=== PATIENT | female | born 1945 | race Caucasian/White ===

== ENCOUNTER 2018-04-18 14:38 | Emergency (ER) | payer OTHER ==
[~2018-04-18] VITALS: Ht 165.1 cm; Wt 73.9 kg
[~2018-04-18 14:38] MED LIST: ALBUTEROL2.5 MG/31 INH; ARTIFICIAL TEA1 EACH OPHTHALMIC; ASA5UEC PO; AZELASTINE137 MCG/0. NS; BENADRYL25 MG PO; BENZONATATE200 MG; BROVANA15 MCG/2 M; BUTALBITAL-APA1 EAC1; CITRACAL + BON1 EACH PO; CLARINEX5 MG PO; DUONEB 2.5-0.5 M3 ML INH; FETZIMA40 MG PO; FIBER625 MG PO; FISH OIL 1,001000 M2 PO; FLONASE 0.05%50 MCG NASAL; HEALTHYLAX17 GM; HYDROCHLOROTHIA25 M1 PO; IBUPROFEN 200200 M1 PO; KETOCONAZOLE60 GM TOP; MACROBID 100 M100 M1 PO; MICARDIS40 MG PO; MUCINEX1200 MG PO; NASONEX17 GM; NEILMED SINUS R1 KIT NASAL; NEXIUM 40 MG CA40 M1 PO; NEXIUM40 MG PO; OMEPRAZOLE 20 M20 M1 PO; OPCON-A EYE DRO15 M1 OPHTHALMIC; PHENERGAN 25 MG25 M1; PHENERGAN 25 MG25 M1 PO; PREDNISONE 20 M20 M1; PROAIR HFA8.5 GM INH; PROBIOTIC1 EAC1 PO; PROPRANOLOL 4040 M1; PULMICORT0.25 MG/2; SINGULAIR 10 MG10 M1; SOMA250 MG; SORINE 80 MG TA80 M1; SYMBICORT80 MCG/4.1 INH; TORADOL 10 MG T10 MG PO; UNICOMPLEX M TA1 TA1 PO; VITAMIN D1000 UNI1 PO; VYTORIN 10-401 EACH PO; ZANTAC 150MG T150 MG PO
[2018-04-18 15:01] LABS: ABSOLUTE BASOPHILS 0.1 thou/uL (0.0-0.2); ABSOLUTE EOSINOPHILS 0.5 thou/uL (0.0-0.7); ABSOLUTE LYMPHOCYTES 2.9 thou/uL (0.8-5.3); ABSOLUTE MONOCYTES 0.9 thou/uL (0.0-1.2); ABSOLUTE NEUTROPHILS 4.1 thou/uL (1.6-8.1); BASOPHILS 0.7 %; EOSINOPHILS 5.4 %; HEMATOCRIT 36.6 % (37.0-47.0); HEMOGLOBIN 12.7 gm/dL (12.0-15.0); LYMPHOCYTES 34.5 %; MCH 30.2 pg (26.0-34.0); MCHC 34.7 g/dL (28.0-37.0); MCV 87.1 fL (80.0-100.0); MONOCYTES 10.6 %; MPV 7.1 fl. (7.2-11.1); NUCLEATED RBCS 0 /100WBC; PLATELET COUNT* 321 thou/uL (150-400); POLYS 48.8 %; RDW-CV 13.3 % (10.5-14.5); WBC 8.4 thou/uL (4.0-11.0)
[2018-04-18 15:09] LABS: ANION GAP 7 mmol/L (7-16); BUN 21 mg/dL (7-18); CALCIUM 9.3 mg/dL (8.5-10.1); CHLORIDE 101 mmol/L (98-107); CO2 28 mmol/L (21-32); CREATININE 0.9 mg/dL (0.6-1.3); GLUCOSE 105 mg/dL (70-99); POTASSIUM 3.6 mmol/L (3.5-5.1); SODIUM 136 mmol/L (136-145)
[2018-04-18] MEDS ORDERED: TESSALON PERLE100 MG PO (15:09)
[2018-04-18] MEDS ORDERED: BUTALB-APAP-CA1 EACH PO (15:09)
[2018-04-18] MEDS ORDERED: CARISOPRODOL 3350 MG PO (15:10)
[2018-04-18] MEDS ORDERED: SYMBICORT80 MCG/4.1 INH (15:10)
[2018-04-18] MEDS ORDERED: SINGULAIR 10 MG10 M1 PO (15:10)
[2018-04-18] MEDS ORDERED: CYMBALTA60 MG PO (15:10)
[2018-04-18 15:16] LABS: ALBUMIN 4.2 g/dL (3.4-5.0); ALKALINE PHOSPHATASE 97 U/L (46-116); SGOT 19 U/L (15-37); SGPT 38 U/L (30-65); TOTAL BILIRUBIN 0.3 mg/dL (<0.1-1.0); TOTAL PROTEIN 7.4 g/dL (6.4-8.2); TROPONIN-I LEVEL <0.06 ng/mL (<0.06)
[2018-04-18 16:16] LABS: URINE BILIRUBIN NEGATIVE (Negative); URINE BLOOD NEGATIVE (Negative); URINE CLARITY CLEAR; URINE COLOR YELLOW; URINE GLUCOSE-RANDOM NEGATIVE (Negative); URINE KETONES NEGATIVE (Negative); URINE LEUKOCYTES-REFLEX TRACE (Negative); URINE NITRITE-REFLEX NEGATIVE (Negative); URINE PROTEIN NEGATIVE (Negative); URINE SPECIFIC GRAVITY 1.015 (1.005-1.030); URINE UROBILINOGEN 0.2 E.U./dl (0.2-1.0)
[2018-04-18 16:31] LABS: BACTERIA-REFLEX 1-9 Few /HPF (None Seen); CASTS None Seen /LPF (None Seen); CRYSTALS None Seen /LPF (None Seen); SQUAMOUS NONE SEEN /LPF (0-3); URINE RBC 0-2 Rare /HPF (0-2); URINE WBC-REFLEX 0-5 Rare /HPF (0-5)
[2018-04-18] MEDS ORDERED: PREDNISONE 20 M20 M1 PO (16:58)
[2018-04-18] MEDS ORDERED: CEFUROXIME250 MG PO (16:59)
[2018-04-18 17:09] VITALS: BP 143/60
--- NOTE | 2018-04-20 15:45 | EKG ---
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: You ROWLEY : 1945 Requested By: Carissa Reed Order Number: [id number] MD: Shaun Linn Measurements Intervals [place] Rate: 77 P: 72 [place]: 161 QRS: -28 QRSD: 98 T: 2 QT: 407 QTc: 461 Interpretive Statements Sinus rhythm Inferior infarct, old Compared to ECG 03/24/2007 05:11:54 Myocardial infarct finding now present Sinus bradycardia no longer present Sinus arrhythmia no longer present Electronically Signed On 04-20-2018 15:45:24 CDT by Shaun Linn [email or web address] <ELECTRONICALLY SIGNED> By: Shaun Linn MD, [facility] 04/20/18 1545 1443 1443 Shaun Linn MD, [facility] /EPI
== END 2018-04-18 17:10 | disposition home or self-care (01) ==
LOC: M.ERS 14:38
PROVIDERS: Nurse Practitioner Family
DX: J45.909 Unspecified asthma, uncomplicated (principal); Z88.5 Allergy status to narcotic agent; Z88.8 Allergy status to other drugs, medicaments and biological substances; Z88.1 Allergy status to other antibiotic agents; Z90.710 Acquired absence of both cervix and uterus; Z90.49 Acquired absence of other specified parts of digestive tract

== ENCOUNTER 2018-04-26 07:34 | Inpatient (IN) | payer OTHER ==
[~2018-04-26] VITALS: Ht 162.6 cm; Wt 71.2 kg
[~2018-04-26 07:34] MED LIST changes: +BUTALB-APAP-CA1 EACH PO; +CARISOPRODOL 3350 MG PO; +CEFUROXIME250 MG PO; +CYMBALTA60 MG PO; +PREDNISONE 20 M20 M1 PO; +SINGULAIR 10 MG10 M1 PO; +TESSALON PERLE100 MG PO
[2018-04-26 07:35] VITALS: BP 129/51
[2018-04-26 07:54] LABS: ABSOLUTE EOSINOPHILS 0.5 thou/uL (0.0-0.7); ABSOLUTE LYMPHOCYTES 2.1 thou/uL (0.8-5.3); ABSOLUTE MONOCYTES 0.9 thou/uL (0.0-1.2); ABSOLUTE NEUTROPHILS 6.4 thou/uL (1.6-8.1); BASOPHILS 0.5 %; EOSINOPHILS 5.5 %; HEMATOCRIT 35.6 % (37.0-47.0); HEMOGLOBIN 12.1 gm/dL (12.0-15.0); LYMPHOCYTES 21.2 %; MCH 29.7 pg (26.0-34.0); MCV 87.6 fL (80.0-100.0); MPV 6.6 fl. (7.2-11.1); NUCLEATED RBCS 0 /100WBC; PLATELET COUNT* 337 thou/uL (150-400); POLYS 63.8 %; RBC 4.06 mil/uL (4.20-5.00); RDW-CV 13.7 % (10.5-14.5)
[2018-04-26 08:03] LABS: APTT 24.5 Seconds (25.0-31.3)
[2018-04-26 08:04] LABS: ANION GAP 8 mmol/L (7-16); BUN 21 mg/dL (7-18); CALCIUM 8.6 mg/dL (8.5-10.1); CHLORIDE 101 mmol/L (98-107); CO2 27 mmol/L (21-32); CREATININE 0.8 mg/dL (0.6-1.3); GLUCOSE 107 mg/dL (70-99); POTASSIUM 3.6 mmol/L (3.5-5.1); SODIUM 136 mmol/L (136-145)
[2018-04-26 08:11] LABS: ALBUMIN 3.5 g/dL (3.4-5.0); ALKALINE PHOSPHATASE 80 U/L (46-116); SGOT 14 U/L (15-37); SGPT 40 U/L (30-65); TOTAL BILIRUBIN 0.3 mg/dL (<0.1-1.0); TOTAL PROTEIN 6.5 g/dL (6.4-8.2); TROPONIN-I LEVEL <0.06 ng/mL (<0.06)
[2018-04-26 09:39] LABS: URINE BILIRUBIN NEGATIVE (Negative); URINE BLOOD NEGATIVE (Negative); URINE CLARITY CLEAR; URINE COLOR YELLOW; URINE GLUCOSE-RANDOM NEGATIVE (Negative); URINE KETONES NEGATIVE (Negative); URINE LEUKOCYTES-REFLEX 1+ (Negative); URINE NITRITE-REFLEX NEGATIVE (Negative); URINE PROTEIN NEGATIVE (Negative); URINE UROBILINOGEN 0.2 E.U./dl (0.2-1.0)
[2018-04-26 09:50] VITALS: BP 135/66
[2018-04-26 09:51] LABS: BACTERIA-REFLEX 1-9 Few /HPF (None Seen); CASTS None Seen /LPF (None Seen); CRYSTALS None Seen /LPF (None Seen); MUCUS 0-3 Light strn/LPF (None Seen); SQUAMOUS 0-3 Few /LPF (0-3); URINE RBC 3-10 Few /HPF (0-2); URINE WBC-REFLEX 0-5 Rare /HPF (0-5)
--- NOTE | 2018-04-26 10:15 | NUR ---
PATIENT ARRIVED TO UNIT AT 1000. ALERT AND ORIENTED X 4. VITAL SIGNS STABLE ON 2L O2 NASAL CANULA. AFEBRILE. PERRLA. IV PATENT WITH FLUIDS INFUSING. ORIENTED PATIENT TO ROOM. CALL LIGHT WITHIN REACH. NURSING WILL CONTINUE TO MONITOR.
[2018-04-26 11:22] VITALS: BP 135/66
--- NOTE | 2018-04-26 11:34 | EKG ---
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: [place] : 1945 Requested By: Jonas Hanna Order Number: [id number] MD: Nabor Patel Measurements Intervals [place] Rate: 70 P: 42 NE: 155 QRS: -32 QRSD: 94 T: -3 QT: 433 QTc: 468 Interpretive Statements Sinus rhythm Atrial premature complex consider old inferior infarction Left axis deviation Compared to ECG 04/18/2018 14:43:24 Atrial premature complex(es) now present Electronically Signed On 04-26-2018 11:34:18 CDT by Nabor Patel [email or web address] <ELECTRONICALLY SIGNED> By: Nabor Patel MD, [facility] 04/26/18 1134 0751 0751 Nabor Patel MD, [facility] /EPI
[2018-04-26 12:25] VITALS: BP 142/66
--- NOTE | 2018-04-26 15:14 | NUR ---
PATIENT ARRIVED BACK TO UNIT FROM PACU AT 1510. VITAL SIGNS STABLE ON 2L O2 NASAL CANULA WITH END TIDAL IN PLACE. ENCOURAGED PATIENT TO COUGH AND DEEP BREATHE 10 TIMES EVERY HOUR. DRESSING TO LEFT HIP CLEAN, DRY, AND INTACT. HONG PATENT AND DRAINING. SCD'S IN PLACE BILATERALLY. ITALIA HOSE IN PLACE BILATERALLY. CALL LIGHT WITHIN REACH. NURSING WILL CONTINUE TO MONITOR.
[2018-04-26 16:10] VITALS: BP 114/50
--- NOTE | 2018-04-26 18:25 | NUR ---
PATIENT ALERT AND ORIENTED X 4. VITAL SIGNS STABLE ON 2L O2 NASAL CANULA. CAPNO IN PLACE. AFEBRILE. PERRLA. IV PATENT WITH FLUIDS INFUSING. HONG PATENT AND DRAINING. PAIN BEING MANAGED WITH IV PAIN MEDICATION. DENIES NAUSEA. DRESSING TO LEFT HIP CLEAN, DRY, AND INTACT. SCD'S AND ITALIA HOSE IN PLACE BILATERALLY. FALL PRECAUTIONS IN PLACE AND BED ALARM ON. HOURLY ROUNDS MAINTAINED THROUGHOUT THE SHIFT. CALL LIGHT WITHIN REACH. NURSING WILL CONTINUE TO MONITOR.
[2018-04-27 00:51] VITALS: BP 102/44
[2018-04-27 04:35] LABS: HEMATOCRIT 30.3 % (37.0-47.0); HEMOGLOBIN 10.3 gm/dL (12.0-15.0)
[2018-04-27 04:42] VITALS: BP 106/49
[2018-04-27 08:10] VITALS: BP 133/61
--- NOTE | 2018-04-27 08:20 | NUR ---
PATIENT HAS SLEPT OFF AND ON DURING THE NIGHT BUT HAS BEEN RESTLESS AT TIMES. PAIN MEDICATIONS GIVEN TO HELP WITH C/O PAIN AND CHARTED. VSS ON 2L 02 VIA NASAL CANNULA AND CAPNO. HONG TO DEPENDENT DRAINAGE WITH YELLOW URINE OUTPUT. DRESSING TO LEFT HIP IS C/D/I, SCD'S IN PLACE AND ICE PACK ON SURGICAL SITE. IV IN LEFT AC-SL. NO C/O NAUSEA. PATIENT REPOSITIONED BUT PATIENT DID NOT WANT TO BE MOVED MOST OF THE TIME D/T PAIN IN LEFT LEG. PATIENT INSTRUCTED TO USE CALL LIGHT WHEN NEEDING ASSISTANCE. HOURLY ROUNDS MADE. WILL CONTINUE WITH PLAN OF CARE AND NURSING TO MONITOR.
[2018-04-27 16:04] VITALS: BP 129/51
--- NOTE | 2018-04-27 18:13 | NUR ---
PATIENT RESTING IN BED. AT BEDSIDE. PATIENT HAS HAD COMPLAINT S OF LEFT HIP PAIN AND MIGRAINE THROUGHOUT DAY. MIGRAINE HAS IMPROVED THROUGHOUT DAY FIORECET. LEFT HIP PAIN HAS ALSO IMPROVED THROUGHOUT DAY WITH ADEQUATE RELIEF PROVIDED BY MORPHINE AND FENTANYL. PATIENT WORKED WITH THERAPY THIS AM. PATIENT REFUSED HONG OUT THIS AM. PATIENT HAS FAIR APPETITE. PATIENT DENIES ANY NEEDS AT THIS TIME. CALL LIGHT WITHIN REACH. WILL CONTINUE TO MONITOR.
[2018-04-27 20:50] VITALS: BP 157/59
--- NOTE | 2018-04-27 22:23 | OP ---
[facility] [address] [place] [address] OPERATIVE REPORT Name: EMILIEKATHYTRACY ARSHADEN Room: [address] IN M.R.#: [id number] Admission: 04/26/18 Attend Phys: Claudia Alvarado Discharge: Date of : 47 Report #: [id number] THIS REPORT FOR: //name// CC: Renan Altamirano DICTATED BY: Tong Mitchell DO DATE OF SERVICE: 04/26/2018 PREOPERATIVE DIAGNOSIS: Left hip nondisplaced femoral neck fracture. POSTOPERATIVE DIAGNOSIS: Left hip nondisplaced femoral neck fracture. PROCEDURE PERFORMED: Left hip in situ screw fixation. SURGEON: Nabor Lezama DO. POSTPARTUM NURSE: Tong Mitchell DO SECOND POSTPARTUM NURSE: Nicholas Harris DO. ESTIMATED BLOOD LOSS: 20 mL. ANESTHESIA: General. ANTIBIOTIC: Two grams Ancef IV preoperatively. SPECIMENS: None. COMPLICATIONS: None. CONDITION: The patient is stable to PACU. INDICATIONS FOR PROCEDURE: The patient is a pleasant 72-year-old female who presented to [facility] Emergency Department after a fall onto her left hip this morning. Upon presentation, she was found to have a nondisplaced femoral neck fracture. Surgical intervention was recommended for the patient. The risks, benefits, alternatives and complications were discussed and she wished to proceed. DESCRIPTION OF PROCEDURE: The patient was seen and examined in the preoperative holding area. The correct operative extremity was marked by the operating surgeon. Written consent was obtained for the procedure. The patient was then transferred to the operating room, given the benefit of general anesthesia. She was transferred to the [facility]. The left [place] [address] OPERATIVE REPORT Name: EMILIEKATHYTRACY MARADIAGA Room: [address] IN .R.#: [id number] Admission: 04/26/18 Attend Phys: Claudia Alvarado Discharge: Date of : 47 Report #: [id number] boot and traction leg durbin and the right lower extremity was placed in the leg durbin. The left lower extremity was prepped and draped in the usual sterile fashion. Timeout was performed to verify the correct patient, procedure, and operative extremity and all were in agreement. Next, a standard lateral incision was made and carried down to the level of bone. Using a fluoroscopy, the inferior guide pin was inserted along the inferior aspect of the femoral neck on the AP radiograph and centered in the femoral neck on the lateral radiograph. Next, the offset guide was used to insert the superior guidewires, 1 anterior and 1 posterior in the neck using both AP and lateral radiographs for positioning. Next, the lateral cortex was drilled. The guidewires were then measured and each were measured to be 90 mm screw. The screws were then inserted over the guidewires and verified to be in correct position in both the femoral neck and femoral head on AP and lateral radiographs. The guidewires were then removed and final radiographs were taken. Final radiographs confirmed appropriate position of the 3 partially threaded screws. The incision was then thoroughly irrigated and the IT band was closed with 0 Vicryl, followed by 2-0 Vicryl subcutaneously and kassandra on the skin. Sterile dressing of Mepilex, 4 x 4s, ABD and tape were applied to the left hip. The patient was then awakened from anesthesia and transferred to the PACU in stable condition. POSTOPERATIVE COURSE: The patient will be admitted to the medical floor. Proper analgesia as well as DVT prophylaxis will be administered postoperatively. The patient will be made toe-touch weightbearing to the left lower extremity. Physical Therapy and Occupational Therapy will see and evaluate the patient for postoperative needs. <ELECTRONICALLY SIGNED> By: Nabor Lezama DO 04/27/18 2223 1356 1515Daviclaudia Lezama DO /nt
[2018-04-28] VITALS: BP 111/60
[2018-04-28 03:30] VITALS: BP 105/43
[2018-04-28 04:04] LABS: HEMATOCRIT 30.7 % (37.0-47.0); HEMOGLOBIN 10.4 gm/dL (12.0-15.0)
--- NOTE | 2018-04-28 07:08 | NUR ---
ALERT AND ORIENTED X4. REPOSITIONED AT LEAST EVERY 2 HOURS. WILL D/C HONG CATHETER THIS AM. URINE CLEAR YELLOW IN COLOR. HAS DRY DRESSING OVER LEFT HIP INCISION. USING ALTERNATING IV PAIN MEDICATIONS TO HELP WITH LEFT HIP PAIN AND HEADACHES. DR NOTIFIED OF ELEVATED TEMPATURE THIS AM. CALL LIGHT WITHIN REACH. WEIGHTBEARING STATUS TO LEFT LOWER EXTEMITY IS TOE TOUCH WEIGHTBEARING.
[2018-04-28 09:50] VITALS: BP 118/53
--- NOTE | 2018-04-28 12:23 | NUR ---
SPOKE WITH PT.AND . SHE WAS MOANING,NOT FEELING WELL. ANSWERED ALL THE QUESTIONS. HE SAID THEY LIVE IN A HOUSE. IT HAS 12 STEPS TO ENTER. HE SAID HE COULD DRIVE IN THE [place] AND GET HER CLOSER AND SHE WOULD ONLY HAVE 3-4 STEPS. SHE DOES NOT USE DME. NO HX OF HH. HE SAID SHE WAS INDEPENDENT AT [facility]. THEY SHARE CHORES. THEY BOTH DRIVE. HE USUALLY DOES THE DRIVING. DISCUSSED DISCHARGE PLANNING. GAVE HIM A LIST OF SNFS THAT CONTRACT WITH HER INSURANCE.
[2018-04-28 16:00] VITALS: BP 116/48
[2018-04-28 20:00] VITALS: BP 117/64
--- NOTE | 2018-04-28 20:46 | NUR ---
ASSUMED CARES OF PT AT 0700. PT IN BED, BED IN LOW LOCKED POSITION, CALL BUTTON AND PERSONAL ITEMS IN PT REACH. PT USES CALL BUTTON APPROPRIATELY. PT A&O X4, HRRR PER AUSCULTATION, LCTAB, VSS ON 2L O2 NC, AFEBRILE, PERRLA, SKIN INTACT LEFT HIP SURGICAL DRESSING C/D/I. PT UP TOE TOUCH WITH WALKER AND GAIT BELT TO BSC. LEFT AC IV PATENT TO FLUSH AND IVP MEDS. BILATERAL CALF SCD'S IN PLACE AND ACTIVE WHILE PT IN BED. ICE PACK ON HIP PER PT REQUEST. PO DAY 2, PT STILL HAS DIFFICULTY CONTROLLING PAIN AND ANXIETY. PT EXPERIENCED N/V THIS SHIFT, SMALL EMISIS IN [place]. NON-PRODUCTIVE COUGH. PT C/O HEADACHE MOST OF SHIFT, FIORICET GIVEN , PARTIALLY EFFECTIVE PER PT STATEMENT. SPOUSE AT BEDSIDE MOST OF SHIFT, ATTEMPTED TO HELP PT OOB TO BSC WITHOUT CALLING FOR STAFF. PT AND SPOUSE REEDUCATED ON IMPORTANCE OF CALLING FOR STAFF HELP TO BSC. SPOUSE ATTEMPTED TO TURN OFF BED ALARM AND WAS FOUND BY NURSING STAFF. HOURLY ROUNDING COMPLETED. PT PROGRESSING TOWARDS GOAL. FLAT, ANXIOUS, FUSSY DISPOSITION THIS SHIFT. REPORT TO EXPORT PACKER FOR CONTINUED CARES.
[2018-04-28 23:49] VITALS: BP 121/64
[2018-04-29 04:01] VITALS: BP 117/56
--- NOTE | 2018-04-29 04:34 | NUR ---
PATIENT ORIENTED X4 ON HOURLY ROUNDS. MEDICATED FOR PAIN WITH GOOD EFFECT REPORTED. DRESSING TO LEFT HIP IS DRY AND INTACT. VITALS STABLE ON 2L O2 . DENIES NAUSEA. TOLERATING DIET. UP TO BSC WITH ASSIST X1, MAINTAING TTWB. WILL CONINTUE TO MONITOR.
[2018-04-29 08:00] VITALS: BP 119/64
--- NOTE | 2018-04-29 11:26 | NUR ---
PT.CHOSE [facility] FOR SKILLED FACILITY. NOTIFIED [facility] AND FAXED HER REFERRAL. SHE WILL NEED TO OBTAIN AUTHORIZATION FROM INSURANCE.
[2018-04-29 15:56] VITALS: BP 116/53
--- NOTE | 2018-04-29 16:20 | NUR ---
PT PARTICIPATED IN ALL THERAPIES. PT UP TO BSC WITH ASSIST FREQUENTLY. PT REPORTS LOPEZ. MEDS GIVEN ORDERED. TOLERATING PO WELL. AT BS AND UPDATED ON PLAN OF CARE
[2018-04-30] VITALS: BP 118/67
--- NOTE | 2018-04-30 04:41 | NUR ---
PATIENT ORIENTED X4. UP WITH ASSIST X1. MEDICATED FOR PAIN WITH PARTIAL EFFECT REPORTED. ZOFRAN GIVEN X1. DRESSING TO LEFT HIP CLEAN, DRY AND INTACT. VITALS STABLE ON ROOM AIR. WILL CONTINUE TO MONITOR.
[2018-04-30 10:00] VITALS: BP 127/62
[2018-04-30] MEDS ORDERED: CARISOPRODOL 3350 MG PO (10:35)
[2018-04-30] MEDS ORDERED: BUTALB-APAP-CA1 EACH PO (10:35)
[2018-04-30] MEDS ORDERED: TRAMADOL 50 MG50 MG PO (10:35)
[2018-04-30] MEDS ORDERED: ATIVAN1 MG PO (10:35)
--- NOTE | 2018-04-30 12:04 | NUR ---
RECEIVED MESSAGE FROM [facility]. THEY RECEIVED AUTHORIZATION FOR PT.FROM INSURANCE FOR A SKILLED BED. THEY WILL PICK HER UP AT 2PM. NOTIFIED PT.AND . CHART COPIED TO GO WITH PT. NURSING TO CALL REPORT. FAXED DISCHARGE ORDERS TO [facility].
[2018-04-30] MEDS ORDERED: ONDANSETRON HCL4 M2 PO (12:39)
[2018-04-30 12:44] VITALS: BP 127/62
--- NOTE | 2018-04-30 14:30 | NUR ---
PATIENT SITTING UP IN CHAIR ALL SHIFT. FIORCET GIVEN X 1 FOR HEADACHE. TRAMADOL AND ZOFRAN PRN GIVEN X 1 THIS SHIFT PRIOR TO DC. IV DC'D PER PROTOCOL. GOOD APPETITE. DISCHARGE PACKET SENT WITH WHEELCHAIR VAN TO [facility]. MAKING SECOND ATTEMPT TO GIVE REPORT ON PATIENT AT THIS TIME, HAVE BEEN UNABLE TO SPEAK WITH ANYONE.
== END 2018-04-30 13:30 | DRG 481 ==
LOC: M.ERS 07:34 → M.ORTHSURG 08:33 → M.TBA-ER 08:33 → M.ORTHSURG 10:00
PROVIDERS: Family Medicine; Orthopaedic Surgery; ADMIT Internal Medicine
PROC: 0QS704Z Reposition Left Upper Femur with Internal Fixation Device, Open Approach (ICD-10-PCS; principal; 2018-04-26)
DX: S72.002A Fracture of unspecified part of neck of left femur, initial encounter for closed fracture (principal); R71.0 Precipitous drop in hematocrit; J45.909 Unspecified asthma, uncomplicated; G43.909 Migraine, unspecified, not intractable, without status migrainosus; E78.5 Hyperlipidemia, unspecified; M19.90 Unspecified osteoarthritis, unspecified site; I10 Essential (primary) hypertension; R09.02 Hypoxemia; W01.0XXA Fall on same level from slipping, tripping and stumbling without subsequent striking against object, initial encounter; Z90.710 Acquired absence of both cervix and uterus; Z98.890 Other specified postprocedural states; Z90.49 Acquired absence of other specified parts of digestive tract; Z79.2 Long term (current) use of antibiotics; Z79.82 Long term (current) use of aspirin; Z79.899 Other long term (current) drug therapy; Z88.6 Allergy status to analgesic agent; Z88.2 Allergy status to sulfonamides; Z88.8 Allergy status to other drugs, medicaments and biological substances; Y93.89 Activity, other specified; Y92.89 Other specified places as the place of occurrence of the external cause; Y99.8 Other external cause status

== ENCOUNTER → 2018-12-26 | Outpatient (CLI) | payer OTHER ==
[~2018-12-26] MED LIST changes: +ATIVAN1 MG PO; +ONDANSETRON HCL4 M2 PO; +TRAMADOL 50 MG50 MG PO
== END ==
LOC: M.RAD 15:04
DX: J15.8 Pneumonia due to other specified bacteria (principal)

== ENCOUNTER 2020-01-05 15:26 | Inpatient (IN) | payer OTHER ==
[~2020-01-05] VITALS: Ht 162.6 cm; Wt 72.1 kg
[2020-01-05 15:32] VITALS: BP 122/78
[2020-01-05 16:21] LABS: HEMATOCRIT 41.3 % (37.0-47.0); HEMOGLOBIN 13.9 gm/dL (12.0-15.0); MCHC 33.6 g/dL (28.0-37.0); MCV 89.2 fL (80.0-100.0); MPV 7.1 fl. (7.2-11.1); NUCLEATED RBCS 0 /100WBC; PLATELET COUNT* 306 thou/uL (150-400); RBC 4.63 mil/uL (4.20-5.00); RDW-CV 13.2 % (10.5-14.5); WBC 13.8 thou/uL (4.0-11.0)
[2020-01-05 16:32] LABS: CALCIUM 8.4 mg/dL (8.5-10.1); CREATININE 0.8 mg/dL (0.6-1.3); POTASSIUM 3.8 mmol/L (3.5-5.1)
[2020-01-05 16:37] LABS: ALBUMIN 3.6 g/dL (3.4-5.0); TOTAL BILIRUBIN 0.5 mg/dL (<0.1-1.0); TOTAL PROTEIN 7.1 g/dL (6.4-8.2)
[2020-01-05 16:43] LABS: INFLUENZA A ANTIGEN Negative (Negative); INFLUENZA B ANTIGEN Negative (Negative)
[2020-01-05 17:22] LABS: ABSOLUTE EOSINOPHILS 0.4 thou/uL (0.0-0.7); ABSOLUTE LYMPHOCYTES 0.8 thou/uL (0.8-5.3); ABSOLUTE MONOCYTES 0.6 thou/uL (0.0-1.2)
[2020-01-05 17:23] LABS: PLATELET ESTIMATE ADEQUATE
[2020-01-05 19:12] LABS: URINE BILIRUBIN NEGATIVE (Negative); URINE BLOOD NEGATIVE (Negative); URINE CLARITY CLEAR; URINE COLOR YELLOW; URINE GLUCOSE-RANDOM NEGATIVE (Negative); URINE KETONES NEGATIVE (Negative); URINE LEUKOCYTES-REFLEX NEGATIVE (Negative); URINE NITRITE-REFLEX NEGATIVE (Negative); URINE PROTEIN NEGATIVE (Negative); URINE UROBILINOGEN 0.2 E.U./dl (0.2-1.0)
[2020-01-05 23:07] VITALS: BP 114/44
[2020-01-06] VITALS: BP 132/67
[2020-01-06 04:00] VITALS: BP 95/46
--- NOTE | 2020-01-06 04:38 | NUR ---
PATIENT ARRIVED TO UNIT FROM TELE BY BED IN STABLE CONDITION AT 2330. PATIENT HAD BEEN PROVIDED WITH PAIN AND NAUSEA MEDICATION PRIOR TO TRANSFER IN ER WITH SOME RELIEF OF SYMPTOMS. IVF'S AND ORDERED ANTIBIOTICS PROVIDED. ASSIST TO BSC DUE TO WEAKNESS. NO STOOLS OR EMESIS THIS SHIFT. FEVER. FIORISET FOR HEADCAHE EFFECTIVE. RESTING QUIETLY. CONTINUE TO MONITOR.
[2020-01-06 04:42] LABS: HEMATOCRIT 33.4 % (37.0-47.0); MCH 30.5 pg (26.0-34.0); MCHC 34.4 g/dL (28.0-37.0); MCV 88.8 fL (80.0-100.0); MPV 7.4 fl. (7.2-11.1); RBC 3.76 mil/uL (4.20-5.00); RDW-CV 13.2 % (10.5-14.5); WBC 9.4 thou/uL (4.0-11.0)
[2020-01-06 04:55] LABS: HEMOGLOBIN 11.5 gm/dL (12.0-15.0)
[2020-01-06 05:09] LABS: CALCIUM 6.6 mg/dL (8.5-10.1); CREATININE 0.8 mg/dL (0.6-1.3); MAGNESIUM 1.5 mg/dL (1.8-2.4); POTASSIUM 3.1 mmol/L (3.5-5.1)
[2020-01-06 07:40] VITALS: BP 97/45
--- NOTE | 2020-01-06 12:21 | NUR ---
CM ASSESSMENT: PT LIVES AT HOME WITH HER . INDPENDENT WITH ADLS. PT USES A CANE. PT DENIES NEED FOR HH OR DME. CM WILL CONTINUE TO FOLLOW NEEDED
--- NOTE | 2020-01-06 13:57 | EKG ---
[place] [address] ELECTROCARDIOGRAM REPORT Name: KATHY PHAN Room: [address] ADM IN M.R.#: [id number] Admission: 01/05/20 Attend Phys: Paul Walsh, Discharge: Date of : 47 Date of Service: 01/05/20 1613 Report #: [id number] THIS REPORT FOR: cc: Michael Holbrook MD, Dean L. 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[facility] : 1945 Requested By: Esther Mann Order Number: [id number] : Vicente West Measurements Intervals [place] Rate: 103 P: 69 [place]: 161 QRS: -44 QRSD: 87 T: 29 QT: 346 QTc: 453 Interpretive Statements Sinus tachycardia Inferior infarct, old Compared to ECG 04/26/2018 07:51:42 Sinus rate has increased Atrial premature complex(es) no longer present Myocardial infarct finding still present Electronically Signed On 01-06-2020 9:56:49 CLIENT SUPPORT MANAGER by Vicente West [email or web address] <ELECTRONICALLY SIGNED> By: Vicente West MD, [facility] 01/06/20 0956 1613 1613 Vicente West MD, [facility] /EPI
[2020-01-06 16:00] VITALS: BP 118/60
--- NOTE | 2020-01-06 16:37 | NUR ---
PT REMAINED ALERT AND ORIENTED. PT GIVEN PAIN AND NAUSEA MEDS ORDERED. FALL RISK PRECAUTIONS IN PLACE. HOURLY ROUNDING COMPLETED. WILL CONTINUE TO MONITOR.
[2020-01-06 20:40] VITALS: BP 122/57
[2020-01-07 04:30] LABS: CALCIUM 6.6 mg/dL (8.5-10.1); CREATININE 0.8 mg/dL (0.6-1.3); MAGNESIUM 1.4 mg/dL (1.8-2.4); POTASSIUM 3.8 mmol/L (3.5-5.1)
[2020-01-07] MEDS ORDERED: LOPERAMIDE 2 MG2 M1 PO (06:55)
[2020-01-07] MEDS ORDERED: PHENERGAN 25 MG25 M1 PO (06:55)
[2020-01-07] MEDS ORDERED: AZITHROMYCIN500 MG PO (06:55)
--- NOTE | 2020-01-07 07:49 | NUR ---
Alert and oriented x 4. She is up with stand by assist x 1 to bedside commode. She has had loose stools this shift. Shehas slept well.
[2020-01-07 10:00] VITALS: BP 126/56
[2020-01-07 15:15] VITALS: BP 122/57
[2020-01-07 15:18] VITALS: BP 122/57
[2020-01-07 16:15] VITALS: BP 121/52
[2020-01-07 16:32] VITALS: BP 122/57
== END 2020-01-07 16:32 | disposition home or self-care (01) | DRG 372 ==
LOC: M.ERS 15:26 → M.ORTHSURG 18:53 → M.TBA-ER 18:53 → M.2W 23:01 → M.ORTHSURG 23:28
PROVIDERS: Nurse Practitioner Family; ADMIT Internal Medicine
DX: A04.8 Other specified bacterial intestinal infections (principal); R65.10 Systemic inflammatory response syndrome (SIRS) of non-infectious origin without acute organ dysfunction; G43.909 Migraine, unspecified, not intractable, without status migrainosus; M19.90 Unspecified osteoarthritis, unspecified site; J44.9 Chronic obstructive pulmonary disease, unspecified; E78.00 Pure hypercholesterolemia, unspecified; K21.9 Gastro-esophageal reflux disease without esophagitis; I10 Essential (primary) hypertension; Z79.899 Other long term (current) drug therapy; Z79.51 Long term (current) use of inhaled steroids; Z90.49 Acquired absence of other specified parts of digestive tract; Z90.710 Acquired absence of both cervix and uterus; Z79.82 Long term (current) use of aspirin; Z88.6 Allergy status to analgesic agent; Z88.1 Allergy status to other antibiotic agents; Z88.5 Allergy status to narcotic agent; Z88.2 Allergy status to sulfonamides; Z88.8 Allergy status to other drugs, medicaments and biological substances; Z72.89 Other problems related to lifestyle

== ENCOUNTER 2020-01-17 15:55 | Emergency (ER) | payer OTHER ==
[~2020-01-17] VITALS: Ht 162.6 cm; Wt 70.3 kg
[~2020-01-17 15:55] MED LIST changes: +AZITHROMYCIN500 MG PO; +LOPERAMIDE 2 MG2 M1 PO
[2020-01-17 16:38] LABS: HEMATOCRIT 38.6 % (37.0-47.0); HEMOGLOBIN 13.3 gm/dL (12.0-15.0); MCH 30.2 pg (26.0-34.0); MCHC 34.4 g/dL (28.0-37.0); MCV 87.9 fL (80.0-100.0); MPV 7.2 fl. (7.2-11.1); NUCLEATED RBCS 0 /100WBC; PLATELET COUNT* 377 thou/uL (150-400); RBC 4.39 mil/uL (4.20-5.00); RDW-CV 12.7 % (10.5-14.5); WBC 16.8 thou/uL (4.0-11.0)
[2020-01-17 16:55] LABS: CALCIUM 9.7 mg/dL (8.5-10.1); CREATININE 0.9 mg/dL (0.6-1.3)
[2020-01-17 16:57] LABS: POTASSIUM 2.9 mmol/L (3.5-5.1)
[2020-01-17 17:06] LABS: ALBUMIN 4.1 g/dL (3.4-5.0); TOTAL BILIRUBIN 0.6 mg/dL (<0.1-1.0); TOTAL PROTEIN 7.6 g/dL (6.4-8.2)
[2020-01-17 17:49] LABS: ABSOLUTE EOSINOPHILS 0.2 thou/uL (0.0-0.7); ABSOLUTE LYMPHOCYTES 0.8 thou/uL (0.8-5.3); ABSOLUTE MONOCYTES 0.5 thou/uL (0.0-1.2); ABSOLUTE NEUTROPHILS 15.3 thou/uL (1.6-8.1); PLATELET ESTIMATE ADEQUATE
[2020-01-17] MEDS ORDERED: POTASSIUM20 PO (19:25)
[2020-01-17 19:50] VITALS: BP 124/78
--- NOTE | 2020-01-18 08:49 | EKG ---
[place] [address] ELECTROCARDIOGRAM REPORT Name: KATHY PHAN Room: [facility]#: [id number] Admission: 01/17/20 Attend Phys: Discharge: 01/17/20 Date of : 47 Date of Service: 01/17/20 1600 Report #: [id number] THIS REPORT FOR: //name// [facility] ED Test Date: 2020-01-17 Test Time: 16:00:57 Pat Name: KATHY PHAN Department: Room: Gender: Assistant Technician: ABDIRIZAK : 1945 Requested By: Efraín Poon Order Number: [id number] MD: Nabor Patel Measurements Intervals [place] Rate: 64 P: 66 [place]: 163 QRS: -20 QRSD: 101 T: 26 QT: 554 QTc: 572 Interpretive Statements Sinus rhythm Inferior infarct, old Prolonged QT interval Compared to ECG 01/05/2020 16:13:06 Prolonged QT interval now present Sinus tachycardia no longer present Myocardial infarct finding still present Electronically Signed On 01-18-2020 8:48:11 CUSTOMER COUNTER ASSOCIATE by Nabor Patel [email or web address] <ELECTRONICALLY SIGNED> By: Nabor Patel MD, FAC 01/18/20 0848 1600 1600 Nabor Patel MD, [facility] /EPI
== END 2020-01-17 19:52 | disposition home or self-care (01) ==
LOC: M.ERS 15:55
PROVIDERS: Nurse Practitioner Family
DX: E87.6 Hypokalemia (principal); R11.2 Nausea with vomiting, unspecified; I10 Essential (primary) hypertension; J45.909 Unspecified asthma, uncomplicated; G43.909 Migraine, unspecified, not intractable, without status migrainosus; M19.90 Unspecified osteoarthritis, unspecified site; Z90.49 Acquired absence of other specified parts of digestive tract; Z90.710 Acquired absence of both cervix and uterus; Z98.890 Other specified postprocedural states; Z88.6 Allergy status to analgesic agent; Z88.2 Allergy status to sulfonamides; Z88.5 Allergy status to narcotic agent; Z88.8 Allergy status to other drugs, medicaments and biological substances

== ENCOUNTER → 2020-06-28 | Outpatient (CLI) | payer OTHER ==
[~2020-06-28] MED LIST changes: +POTASSIUM20 PO
== END ==
LOC: M.RAD 15:03
PROVIDERS: ATTEND Internal Medicine
DX: J15.8 Pneumonia due to other specified bacteria (principal); R51 Headache; J01.91 Acute recurrent sinusitis, unspecified

== ENCOUNTER → 2020-07-05 | Outpatient (CLI) | payer OTHER ==
[2020-07-05 16:42] LABS: CREATININE 0.9 mg/dL (0.6-1.3)
== END ==
LOC: M.LAB 16:17
PROVIDERS: ATTEND Internal Medicine
DX: R06.02 Shortness of breath (principal); R07.89 Other chest pain; R60.0 Localized edema

== ENCOUNTER → 2020-07-07 | Outpatient (CLI) | payer OTHER | LOC: M.CT 12:48 | PROVIDERS: ATTEND Internal Medicine | DX: J98.4 Other disorders of lung (principal); I25.10 Atherosclerotic heart disease of native coronary artery without angina pectoris; M25.78 Osteophyte, vertebrae ==

== ENCOUNTER → 2020-08-24 | Outpatient (CLI) | payer OTHER ==
--- NOTE | 2020-08-30 22:49 | SLEEP ---
[address] [address] SLEEP STUDY REPORT Name: KATHY PHAN Room: [facility]#: [id number] Admission: 08/24/20 Attend Phys: Sumeet Tang MD Discharge: Date of : 47 Report #: [id number] THIS REPORT FOR: //name// CC: Sumeet Tang This study has been reviewed in its entirety by a board certified sleep specialist DATE OF SERVICE: 08/24/2020 SLEEP STUDY INDICATION FOR SLEEP STUDY: Excessive daytime sleepiness. INTERPRETATION: Total duration of the study is 394 minutes out of which she was asleep for 269 minutes with an overall sleep efficiency of 68.3%. Sleep onset occurred around half an hour after lying down in bed and therefore was delayed. REM onset was also delayed to 293 minutes after sleep onset. N1 sleep duration was 5%, N2 duration was 84%, N3 duration was 1%, and REM duration was 10%. Periodic limb movement index was mildly elevated to 18.5 with a periodic limb movement index with arousals of 9.1. Arousal index was elevated to 35 and mild sleep fragmentation was observed. We did record multiple sleep related respiratory events. These included, 57 hypopneas in addition to 3 central apneas and 28 respiratory effort related arousals. Overall, apnea-hypopnea index was 13.4 with respiratory disturbance index of 19.6, events did appear to be more common in REM sleep. REM apnea-hypopnea index was 37.8. There is also a significant positional variation noted. Overall, 99.3 minutes of supine sleep was recorded. The rest of the time, the patient was asleep in the right side. Supine apnea/hypopnea index is significantly higher at 29, which is also, however, noted that the entire duration of REM sleep occurred so the patient is in supine position and events are more common. Mean heart rate during the sleep study is 67. There are multiple desaturations also recorded. Overall, the patient spent 28.9 minutes below an O2 saturation of 90%, out of which 9.6 minutes were spent below an O2 saturation of 88%. IMPRESSION: 1. Obstructive sleep apnea with an apnea-hypopnea index of 13.4 with nocturnal hypoxemia. The patient spent 28.9 minutes below an O2 saturation of 90%, out of which 9.6 minutes were spent below an O2 saturation of 88%. 2. There is events are more common when the patient is lying supine. Supine apnea/hypopnea index is higher at 29. It is also, however, noted that events are more common in REM sleep and the entire duration of REM sleep occurred and the [place] [address] SLEEP STUDY REPORT Name: EMILIEKATHYTRACY MARADIAGA Room: [facility] DOMINIK [place]#: [id number] Admission: 08/24/20 Attend Phys: Sumeet Tang MD Discharge: Date of : 47 Report #: [id number] RECOMMENDATIONS: 1. Recommend placing the patient on a CPAP auto titrated device with pressure range from 5-15 cm of water with heated humidity and mask per patient preference while asleep. 2. Recommend avoiding sleeping supine and sleep on sides as much as possible. 3. If the patient does well with this therapy, then I will consider obtaining a nocturnal pulse oximetry with the CPAP in place to verify that O2 saturation is being maintained with the CPAP in place. In case the patient continues to remain symptomatic or does not do well with a CPAP auto titrated device then I will be inclined in that case to bring the patient back to the Sleep Lab and perform a repeat sleep study for positive airway pressure titration. 4. Recommend avoiding driving or other activities requiring vigilance if drowsy. This entire sleep study was reviewed by board certified sleep physician. <ELECTRONICALLY SIGNED> By: Sumeet Tang MD 08/30/209 28 2108Asukh Tang MD /nt
== END ==
LOC: M.SLEEPLAB 07-27 21:00
PROVIDERS: ATTEND Internal Medicine Critical Care Medicine
DX: G47.33 Obstructive sleep apnea (adult) (pediatric) (principal); G47.19 Other hypersomnia

== ENCOUNTER → 2020-11-01 | Outpatient (CLI) | payer OTHER ==
--- NOTE | 2020-11-01 13:07 | 2DMMODE ---
[place] [address] 2 D/M-MODE ECHOCARDIOGRAM Name: KATHY PHAN Room: [facility]#: [id number] Admission: 11/01/20 Attend Phys: Sumeet Tang MD Discharge: Date of : 47 Date of Service: 11/01/20 1306 Report #: [id number] THIS REPORT FOR: cc: Michael Holbrook MD, Dean L. MD [place], Michael J. MD [facility] ~ APPROVED REPORT Study performed: 11/01/2020 10:27:20 EXAM: Comprehensive 2D, Doppler, and color-flow Echocardiogram Patient Location: Out-Patient BSA: 1.77 HR: 82 bpm BP: 142/82 mmHg Other Information Study Quality: Fair Indications Dyspnea 2D Dimensions IVSd: 11.19 (7-11mm) LVOT Diam: 20.36 (18-24mm) LVDd: 42.49 mm PWd: 9.63 (7-11mm) Ascending Ao: 32.50 (22-36mm) LVDs: 26.06 (25-40mm) Aortic Root: 26.65 mm Volumes Left Atrial Volume (Systole) LA ESV Index: 18.70 mL/m2 Aortic Valve AoV Peak Elton.: 1.34 m/s AO Peak Gr.: 7.16 mmHg LVOT Max P.84 mmHg AO Mean Gr.: 3.89 mmHg LVOT Mean P.28 mmHg LVOT Max V: 1.31 m/s AO V2 VTI: 23.27 cm LVOT Mean V: 0.83 m/s ALEXI (VTI): 3.60 cm2 LVOT V1 VTI: 25.70 cm Mitral Valve E/A Ratio: 0.76 [place] [address] 2 D/M-MODE ECHOCARDIOGRAM Name: KATHY PHAN Room: [facility]#: [id number] Admission: 11/01/20 Attend Phys: Sumeet Tang MD Discharge: Date of : 47 Date of Service: 11/01/20 1306 Report #: [id number] MV Decel. Time: 277.64 ms MV E Max Elton.: 0.48 m/s MV PHT: 80.52 ms MVA (PHT): 2.73 cm2 TDI E/Lateral E': 6.00 E/Medial E': 5.33 Medial E' Elton.: 0.09 m/s Lateral E' Elton.: 0.08 m/s Pulmonary Valve PV Peak Elton.: 0.81 m/s PV Peak Gr.: 2.60 mmHg Tricuspid Valve RAP Estimate: 5.00 mmHg TR Peak Gr.: 11.71 mmHg RVSP: 16.71 mmHg PA Pressure: 16.71 mmHg Left Ventricle The left ventricle is normal size. There is normal LV segmental wall motion. There is normal left ventricular wall thickness. Left ventricular systolic function is normal. LVEF is 60-65%. Grade I - abnormal relaxation pattern. Right Ventricle The right ventricle is normal size. The right ventricular systolic function is normal. Atria The left atrium size is normal. The right atrium size is normal. Aortic Valve The aortic valve is normal in structure. No aortic regurgitation is present. There is no aortic valvular stenosis. Mitral Valve The mitral valve is normal in structure. There is no mitral valve regurgitation noted. No evidence of mitral valve stenosis. Tricuspid Valve The tricuspid valve is normal in structure. Trace tricuspid regurgitation. Pulmonic Valve The pulmonary valve is normal in structure. There is [place] [address] 2 D/M-MODE ECHOCARDIOGRAM Name: KATHY PHAN Room: [facility]#: [id number] Admission: 11/01/20 Attend Phys: Sumeet Tang MD Discharge: Date of : 47 Date of Service: 11/01/20 1306 Report #: [id number] valvular regurgitation. Great Vessels The aortic root is normal in size. IVC is normal in size and collapses >50% with inspiration. Pericardium There is no pericardial effusion. <Conclusion> The left ventricle is normal size. There is normal left ventricular wall thickness. Left ventricular systolic function is normal. LVEF is 60-65%. Grade I - abnormal relaxation pattern. Trace tricuspid regurgitation. IVC is normal in size and collapses >50% with inspiration. <ELECTRONICALLY SIGNED> By: Shaun Linn MD, FACC 11/01/20 1306 1306 1306 Shaun Linn MD, FACC /INF
== END ==
LOC: M.CRD 10:32
PROVIDERS: ATTEND Internal Medicine Critical Care Medicine
DX: J47.9 Bronchiectasis, uncomplicated (principal); R91.8 Other nonspecific abnormal finding of lung field; I25.10 Atherosclerotic heart disease of native coronary artery without angina pectoris

== ENCOUNTER → 2020-12-15 | Outpatient (CLI) | payer OTHER ==
[2020-12-16 15:08] LABS: ANA INTERPRETATION Negative (Negative)
== END ==
LOC: M.LAB 15:04
PROVIDERS: ATTEND Internal Medicine Critical Care Medicine
DX: J84.9 Interstitial pulmonary disease, unspecified (principal); R76.8 Other specified abnormal immunological findings in serum

== ENCOUNTER → 2021-01-31 | Outpatient (CLI) | payer OTHER ==
--- NOTE | 2021-02-09 22:45 | PF ---
[address] [address] PULMONARY FUNCTION REPORT Name: KATHY PHAN Room: [facility].#: [id number] Admission: 01/31/21 Attend Phys: Sumeet Tang MD Discharge: Date of : 47 Report #: [id number] THIS REPORT FOR: cc: Michael Holbrook MD, Dean L. MD ~ Sumeet Tang MD The FEV1/FVC ratio is normal at 77% with a forced vital capacity normal at 101%. The FEV1 is also normal at 104%. The WVM08-37 is normal at 91%. After the administration of a bronchodilator, there is no significant increase in any of these values. The patient's post-bronchodilator FEV1 is noted to be 2.37 liters. The total lung capacity is normal at 88% with residual volume decreased to 67%. The DLCO as adjusted for hemoglobin is mildly decreased to 78%. The flow volume loop is concave upwards. The patient's post-bronchodilator FEV1 again is 2.37 liters. IMPRESSION: 1. The spirometry is normal, but there is a concave upwards flow volume loop. This could be a normal variant, but could also indicate minimal underlying obstruction. 2. There is essentially normal lung volumes with the exception of mild decrease in residual volume to 67%. 3. There is minimal decrease in DLCO as adjusted for hemoglobin to 78%. As above, these are essentially normal pulmonary function test with the exception of minor findings as above, which raised the possibility, but do not confirm presence of minimal underlying obstructive lung disease. <ELECTRONICALLY SIGNED> By: Sumeet Tang MD 02/09/21 2245 [id number] Tang MD /nt
== END ==
LOC: M.PUL 09:56
PROVIDERS: ATTEND Internal Medicine Critical Care Medicine
DX: J45.30 Mild persistent asthma, uncomplicated (principal); J84.9 Interstitial pulmonary disease, unspecified

== ENCOUNTER → 2021-06-12 | Outpatient (CLI) | payer OTHER | LOC: M.CT 05-11 11:30 | PROVIDERS: ATTEND Internal Medicine Critical Care Medicine | DX: J84.9 Interstitial pulmonary disease, unspecified (principal); J47.9 Bronchiectasis, uncomplicated ==

== ENCOUNTER 2021-09-08 09:24 | Observation (INO) | payer OTHER ==
[~2021-09-08] VITALS: Ht 162.6 cm; Wt 72.6 kg
[2021-09-08 09:36] VITALS: BP 139/71
[2021-09-08 11:33] LABS: ABSOLUTE BASOPHILS 0.1 thou/uL (0.0-0.2); ABSOLUTE EOSINOPHILS 0.4 thou/uL (0.0-0.7); ABSOLUTE LYMPHOCYTES 1.5 thou/uL (0.8-5.3); ABSOLUTE MONOCYTES 0.8 thou/uL (0.0-1.2); ABSOLUTE NEUTROPHILS 3.7 thou/uL (1.6-8.1); BASOPHILS 1.1 %; EOSINOPHILS 5.8 %; HEMATOCRIT 37.2 % (37.0-47.0); HEMOGLOBIN 12.6 gm/dL (12.0-15.0); LYMPHOCYTES 23.1 %; MCH 30.3 pg (26.0-34.0); MCHC 33.9 g/dL (28.0-37.0); MCV 89.3 fL (80.0-100.0); MONOCYTES 12.2 %; MPV 6.8 fl. (7.2-11.1); NUCLEATED RBCS 0 /100WBC; PLATELET COUNT* 310 thou/uL (150-400); POLYS 57.8 %; RBC 4.16 mil/uL (4.20-5.00); RDW-CV 12.9 % (10.5-14.5); WBC 6.3 thou/uL (4.0-11.0)
[2021-09-08 11:51] LABS: CALCIUM 8.9 mg/dL (8.5-10.1); CREATININE 0.8 mg/dL (0.6-1.3); POTASSIUM 3.8 mmol/L (3.5-5.1)
[2021-09-08 11:55] LABS: ALBUMIN 3.9 g/dL (3.4-5.0); TOTAL BILIRUBIN 0.3 mg/dL (<0.1-1.0); TOTAL PROTEIN 7.1 g/dL (6.4-8.2)
--- NOTE | 2021-09-08 17:03 | EKG ---
[place] [address] ELECTROCARDIOGRAM REPORT Name: EMILIEKATHYTRACY MARADIAGA Room: [address] M.R.#: [id number] Admission: 09/08/21 Attend Phys: Chani iWlks, Discharge: Date of : 47 Date of Service: 09/08/21 0932 Report #: [id number] THIS REPORT FOR: //name// [facility] ED Test Date: 2021-09-08 Test Time: 09:32:41 Pat Name: KATHY PHAN Department: Room: [facility] Gender: F Lead Former: REGGIE : 1945 Requested By: Mónica Maciel Order Number: [id number] MD: Nabor Patel Measurements Intervals [place] Rate: 80 P: 51 [place]: 151 QRS: -33 QRSD: 88 T: 3 QT: 376 QTc: 434 Interpretive Statements Sinus rhythm Abnormal R-wave progression, late transition Inferior infarct, old Compared to ECG 01/17/2020 16:00:57 Prolonged QT interval no longer present Myocardial infarct finding still present Electronically Signed On 09-08-2021 17:03:24 CDT by Nabor Patel [email or web address] <ELECTRONICALLY SIGNED> By: Nabor Patel MD, FACC 09/08/21 1703 1 Nabor Patel MD, FACC /EPI
[2021-09-08 17:58] VITALS: BP 112/73
[2021-09-08 18:23] VITALS: BP 158/77
--- NOTE | 2021-09-08 18:54 | 2DMMODE ---
[place] [address] 2 D/M-MODE ECHOCARDIOGRAM Name: KATHY PHAN Room: [address] Nehal#: [id number] Admission: 09/08/21 Attend Phys: Chani Wilks, Discharge: Date of : 47 Date of Service: 09/08/21 1854 Report #: [id number] THIS REPORT FOR: cc: Michael Holbrook MD, Dean L. MD Blick, David R. MD [facility] ~ APPROVED REPORT Study performed: 09/08/2021 16:33:47 EXAM: Comprehensive 2D, Doppler, and color-flow Echocardiogram Patient Location: In-Patient Room #: er Status: routine BSA: 1.78 HR: 70 bpm BP: 134/63 mmHg Rhythm: NSR Other Information Study Quality: Good Indications Chest Pain 2D Dimensions IVSd: 8.96 (7-11mm) LVOT Diam: 20.95 (18-24mm) LVDd: 45.34 mm PWd: 10.52 (7-11mm) Ascending Ao: 32.09 (22-36mm) LVDs: 27.39 (25-40mm) Aortic Root: 31.61 mm Volumes Left Atrial Volume (Systole) LA ESV Index: 17.10 mL/m2 Aortic Valve AoV Peak Elton.: 1.38 m/s AO Peak Gr.: 7.56 mmHg LVOT Max P.75 mmHg AO Mean Gr.: 4.09 mmHg LVOT Mean P.05 mmHg LVOT Max V: 1.30 m/s AO V2 VTI: 25.30 cm LVOT Mean V: 0.79 m/s ALEXI (VTI): 3.28 cm2 LVOT V1 VTI: 24.08 [place] [address] 2 D/M-MODE ECHOCARDIOGRAM Name: EMILIEKATHYTRACY MARADIAGA Room: [address] M.R.#: [id number] Admission: 09/08/21 Attend Phys: Chani Wilks, Discharge: Date of : 47 Date of Service: 09/08/21 1854 Report #: [id number] Mitral Valve E/A Ratio: 0.94 MV Decel. Time: 300.43 ms MV E Max Elton.: 0.72 m/s MV PHT: 87.13 ms MVA (PHT): 2.53 cm2 TDI E/Lateral E': 9.00 E/Medial E': 6.00 Medial E' Elton.: 0.12 m/s Lateral E' Elton.: 0.08 m/s Pulmonary Valve PV Peak Elton.: 0.87 m/s PV Peak Gr.: 3.04 mmHg Tricuspid Valve RAP Estimate: 5.00 mmHg TR Peak Gr.: 20.12 mmHg RVSP: 25.00 mmHg PA Pressure: 25.00 mmHg Left Ventricle The left ventricle is normal size. There is normal LV segmental wall motion. There is normal left ventricular wall thickness. Left ventricular systolic function is normal. The left ventricular ejection fraction is within the normal range. LVEF is 60-65%. Grade I - abnormal relaxation pattern. Right Ventricle The right ventricle is normal size. The right ventricular systolic function is normal. Atria The left atrium size is normal. The right atrium size is normal. Aortic Valve The aortic valve is normal in structure. No aortic regurgitation is present. There is no aortic valvular stenosis. Mitral Valve The mitral valve is normal in structure. There is mild mitral valve regurgitation noted. No evidence of mitral valve stenosis. Tricuspid Valve The tricuspid valve is normal in structure. Trace tricuspid regurgitation[place] [address] 2 D/M-MODE ECHOCARDIOGRAM Name: KATHY PHAN Room: [address] M.R.#: [id number] Admission: 09/08/21 Attend Phys: Chani Wilks, Discharge: Date of : 47 Date of Service: 09/08/21 1854 Report #: [id number] Pulmonic Valve Pulmonic valve is not well visualized. There is no pulmonic valvular regurgitation. Great Vessels The aortic root is normal in size. IVC is normal in size and collapses >50% with inspiration. Pericardium There is no pericardial effusion. <Conclusion> LVEF is 60-65%. There is mild mitral valve regurgitation noted. <ELECTRONICALLY SIGNED> By: Nabor Patel MD, FACC 09/08/211853 53 [id number] Nabor Patel MD, FACC /INF
[2021-09-08 20:00] VITALS: BP 145/83
[2021-09-09] VITALS: BP 134/59
[2021-09-09 05:10] LABS: HEMATOCRIT 36.4 % (37.0-47.0); MCH 29.7 pg (26.0-34.0); MPV 7.2 fl. (7.2-11.1); PLATELET COUNT* 289 thou/uL (150-400); RBC 4.05 mil/uL (4.20-5.00); RDW-CV 12.7 % (10.5-14.5); WBC 6.1 thou/uL (4.0-11.0)
[2021-09-09] MEDS ORDERED: PREDNISONE 10 M10 M1 PO (08:41)
[2021-09-09] MEDS ORDERED: CEFDINIR300 MG PO (08:41)
[2021-09-09] MEDS ORDERED: AZITHROMYCIN500 MG PO (08:41)
[2021-09-09 09:01] LABS: ALBUMIN 3.4 g/dL (3.4-5.0); CALCIUM 8.5 mg/dL (8.5-10.1); CREATININE 0.9 mg/dL (0.6-1.3); POTASSIUM 4.2 mmol/L (3.5-5.1)
[2021-09-09 09:03] VITALS: BP 141/70
[2021-09-09 09:45] LABS: TOTAL BILIRUBIN 0.3 mg/dL (<0.1-1.0); TOTAL PROTEIN 6.4 g/dL (6.4-8.2)
[2021-09-09 10:47] LABS: PLATELET ESTIMATE ADEQUATE
[2021-09-09 11:07] VITALS: BP 141/70
[2021-09-09 12:00] VITALS: BP 134/68
--- NOTE | 2021-09-09 12:33 | NUR ---
ORDERS NOTED THIS SHIFT FOR OKAY TO D/C TO HOME PER - IV ABT GIVEN PRIOR TO D/C- IV TI RIGHT AC D/C'D ALONG WITH MONITOR PRIOR TO D/C- D/C EDUCATION/TEACHING/NEEDED FOLLOW UP'S COMMUNICATED TO PT WITH VERBAL UNDERSTANDING NOTED PER PT- WRITTEN EDUCATION PROVIDED TO PT PRIOR TO D/C WITH ALL QUESTIONS AND CONCERNS ADDRESSED PRIOR TO D/C- BELONGINGS PACKED AND ACCOUNTED FOR PER PT- PT ESCORTED PER TECH, VIA W/C WITH BELONGINGS; AT SIDE TO VEHICLE AT 1234- NO PROBLMES TO NOTE AT TIME OF D/C
[2021-09-09 12:51] LABS: ABSOLUTE NEUTROPHILS 3.7 thou/uL (1.6-8.1)
[2021-09-09 12:52] LABS: ABSOLUTE LYMPHOCYTES 1.8 thou/uL (0.8-5.3); ABSOLUTE MONOCYTES 0.4 thou/uL (0.0-1.2)
[2021-09-09 12:53] LABS: ABSOLUTE EOSINOPHILS 0.2 thou/uL (0.0-0.7)
== END 2021-09-09 12:34 | disposition home or self-care (01) ==
LOC: M.ERS 09:24 → M.TBA-ER 13:53 → M.2W 18:25
PROVIDERS: Physician Assistant; ADMIT Internal Medicine; ATTEND Internal Medicine
DX: R07.89 Other chest pain (principal); Z20.822 Contact with and (suspected) exposure to COVID-19; J18.9 Pneumonia, unspecified organism; J96.01 Acute respiratory failure with hypoxia; M79.7 Fibromyalgia; J45.909 Unspecified asthma, uncomplicated; M19.90 Unspecified osteoarthritis, unspecified site; Z79.82 Long term (current) use of aspirin; Z79.899 Other long term (current) drug therapy